=== PATIENT | male | born 1960 | race Caucasian/White ===

== ENCOUNTER 2024-12-03 06:36 | Day surgery (SDC) | payer MEDICARE, OTHER ==
[2024-12-03 06:53] VITALS: RESP 16
[2024-12-03 07:21] LABS: ANION GAP 16.3 MEQ/L (5-15); Calcium 9.3 mg/dL (8.4-10.2); Creatinine 1 0.8 mg/dL (0.66-1.25); EST GLOMERULAR FILTRATION RATE 98.2 ML/MIN; Potassium 3.7 mmol/L (3.5-5.1)
[2024-12-03] MEDS: Lactated Ringers 1,000 ML IV SCH (07:50)
[2024-12-03] MEDS ORDERED: propofoL IV ONE ×3 (08:27→09:04)
[2024-12-03] MEDS ORDERED: Xylocaine-Mpf 2% 5 Ml Vial ONE (08:27)
[2024-12-03] MEDS ORDERED: Versed 2 MG/2 ML Injection ONE (08:27)
[2024-12-03] MEDS ORDERED: Sodium Chloride 0.9% 1000 ML 1,000 ML ONE (09:15)
[2024-12-03] MEDS ORDERED: Ephedrine Sulfate 50 MG/ML ONE (09:21)
[2024-12-03 10:01] VITALS: BP 105/71; PULSE 58; TEMP 97.2; O2SAT 96
--- NOTE | 2024-12-04 09:58 | OP ---
SURGERY DATE/TIME: 12/03/2024 [id number] PREOPERATIVE DIAGNOSES: 1) Gastroesophageal reflux disease. 2) Screening colonoscopy. POSTOPERATIVE DIAGNOSES: 1) Mild gastritis. 2) Gastric polyps. 3) Colon polyps x4. PROCEDURE PERFORMED: Esophagogastroduodenoscopy and colonoscopy. SURGEON: Ren Connelly MD ANESTHESIA: MAC by Calos Almanza CRNA ESTIMATED BLOOD LOSS: Minimal. SPECIMEN: There was a 2 cold forceps biopsies from the gastric antrum, 1 cold forceps polypectomy at gastric polyp, and 4 hot snare polypectomies from the sigmoid colon. DESCRIPTION OF PROCEDURE AND FINDINGS: After informed written consent was obtained, the patient was taken to the endoscopy suite. He was placed in left lateral decubitus position and bite block was inserted. Anesthesia was titrated to the desired level of consciousness. Then, the endoscope was inserted in the posterior oropharynx. Upon entry into the stomach, there was normal rugated gastric mucosa. There were some gastric polyps. In the gastric antrum, there was some mild gastritis-type changes with no focal ulceration or bleeding. The pylorus was traversed, and the duodenum had a normal mucosal appearance. Two cold forceps biopsies were taken from the gastric antrum due to the gastritis type changes, sent for H pylori testing. The remainder of exam was unremarkable. Again, the GE junction and esophageal mucosa all had a normal appearance upon withdrawal. The scope was removed and the scopes were switched. Digital rectal exam showed normal sphincter tone and no internal lesions. The scope was inserted in the rectum and upon entry at about 25 cm scope depth there was a large pedunculated polyp in the sigmoid colon which was grasped with a snare and cauterized at the base, retrieved in a polyp trap, and sent for pathology testing. Upon further entry, the entire colonic mucosa was traversed. The level of the cecum was reached and verified with direct visualization of the ileocecal valve. Upon withdrawal, there were some scattered diverticula rarely throughout the colon. In the proximal sigmoid colon approximately 45 cm scope depth there was another large pedunculated polyp. It was also grasped with a snare at the base, cauterized, and retrieved and sent for pathology. Upon further withdrawal, there were 2 other smaller polyps encountered in the sigmoid colon as well. They were all grasped with a snare, cauterized at the base, and sent for pathology testing. All these areas where hemostatic following the removal and inspection. Prior to withdrawal, retroflexion showed no other lesions. Scope was removed and the patient was transferred to the recovery room in good condition. He will follow up in a 1 week for pathology report.
== END 2024-12-03 10:10 | disposition home or self-care (01) ==
LOC: SDC 06:36
PROVIDERS: ATTEND Family Medicine
DX: Z12.11 Encounter for screening for malignant neoplasm of colon (principal); K21.9 Gastro-esophageal reflux disease without esophagitis; K29.70 Gastritis, unspecified, without bleeding; K31.7 Polyp of stomach and duodenum; D12.5 Benign neoplasm of sigmoid colon
CPT/HCPCS: 36415; 80048; 93005; J2250; J2704